=== PATIENT | male | born 1995 | race Caucasian/White ===

== ENCOUNTER 2021-03-22 17:04 | Emergency (ER) | payer OTHER, SELFPAY ==
--- NOTE | ~2021-03-22 | XR_ITS ---
EXAMINATION: XR chest 2V 03/22/2021 17:32 INDICATION: Cough and wheezing PROCEDURE: 2 view chest COMPARISON: No prior studies for comparison. FINDINGS: The lungs are clear. The cardiomediastinal silhouette is within normal limits. There are no pleural effusions. There is no pneumothorax suspected. IMPRESSION: 1: NO ACUTE CARDIOPULMONARY DISEASE. Reviewed, dictated and finalized at location [facility]
[2021-03-22 17:16] VITALS: BP 125/74; PULSE 95; RESP 14; TEMP 36.8; O2SAT 100
--- NOTE | 2021-03-22 17:19 | ED.URI ---
HPI - URI/Sore Throat General Chief Complaint: Upper Respiratory Infection Stated Complaint: Cough Time Seen by Provider: 03/22/21 17:19 Source: patient and RN notes reviewed Mode of arrival: ambulatory Limitations: no limitations History of Present Illness HPI Narrative: 25-year-old male presents to the [facility] with complaints of, runny nose and congestion for 41-year-old week. MD elicited complaint: cough, rhinorrhea and nasal congestion Related Data Allergies Allergy/AdvReac Type Severity Reaction Status Date / Time adalimumab Allergy Unknown Rash Verified 03/22/21 17:26 Review of Systems Review of Systems: All systems reviewed & are unremarkable except as noted in HPI and below Constitutional: Constitutional: Reports no additional constitutional complaints, Denies chills and Denies fever(s) Eyes: Eyes: Reports no additional eye complaints ENT: Reports as per HPI and Reports nasal congestion Cardiovascular: Cardiovascular: Reports no additional cardiovascular complaints Respiratory: Respiratory: Reports as per HPI, Reports cough and Reports wheezing Gastrointestinal: Gastrointestinal: Reports no additional gastrointestinal complaints Musculoskeletal: Musculoskeletal: Reports no additional musculoskeletal complaints Integumentary/Breasts: Skin/Breast: Reports system reviewed and no additional complaints, except as docu Neurologic: Reports system reviewed and no additional complaints, except as documented Psychiatric: Psychiatric: Reports no additional psychiatric complaints Allergic/Immunologic: Allergic/Immunologic: Reports no additional allergic/immunologic complaints PMFSH Comments At the time of my signature, I reviewed and agree with the nursing past medical, surgical, social, and family history. There is no relevant family history pertinent to the patient complaint. Exam Const: General: no acute distress, alert and ill appearing (mild) acutely Nutritional Appearance: well nourished Orientation/consciousness: patient oriented x3 Limitations: no limitations HENMT: Head: normal to inspection Ears: external ears normal, TM's normal bilaterally and EAC's normal Eyes: Pupils: Equal, round and reactive pupils present Neck: Neck: normal visual inspection, no lymphadenopathy and no meningeal signs Chest: Chest palpation & inspection: normal inspection of the chest Resp: Effort & Inspection: normal respiratory effort Auscultation: wheezes scattered wheezes and throughout Cardio: Rate: regular rate Rhythm: regular rhythm GI: GI Palp: Yes Soft to palpation and No Tenderness to palpation present (GI) Back/Spine/Pelvis: Back: no CVA tenderness Skin: General skin exam: normal color Rashes: no rashes Wounds: no wounds Neuro: General: patient oriented x3, moves all extremities, no meningeal signs and no focal motor deficits Speech: normal speech Gait exam (Neuro): Normal gait present Extrem: General: normal to inspection and no pedal edema Psych: Appearance: grossly normal and well kempt Mental Status: mental status grossly normal Affect: normal affect Attitude: cooperative Thought content: Yes Normal thought content present Course Course Emergency Course: Discharge instructions reviewed with patient, as well as provided in writing per nursing staff. The instructions also include specific and strict return/GO TO THE ER as well as f/u information. All questions have been answered, and the patient deny any further questions with discharge and discharge plan. Vital Signs Vital signs: Vital Signs Temperature 98.3 F 03/22/21 17:16 Pulse Rate 95 03/22/21 17:16 Respiratory Rate 14 03/22/21 17:16 Blood Pressure 125/74 03/22/21 17:16 Pulse Oximetry 100 03/22/21 17:16 Temperature 98.3 F 03/22/21 17:16 Pulse Rate 95 03/22/21 17:16 Respiratory Rate 14 03/22/21 17:16 Blood Pressure 125/74 03/22/21 17:16 Pulse Oximetry 100 03/22/21 17:16 Reviewed MDM - URI/Sor
[2021-03-22] MEDS: predniSONE 20 MG TABLET 40 MG PO (17:32)
[2021-03-22] MEDS: IPRATROPIUM BR 0.02% INH SOLN 0.5 MG/2.5 ML VIAL INHALATION (17:33)
[2021-03-22] MEDS: ALBUTEROL SULFATE NEB 2.5 MG/3 ML INH INHALATION (17:34)
== END 2021-03-22 18:02 | disposition home or self-care (01) ==
PROVIDERS: Emergency Provider Nurse Practitioner
DX: J40 Bronchitis, not specified as acute or chronic (principal)
CPT/HCPCS: 71046; 94640; 99203; G0463; J7512

== ENCOUNTER 2023-03-27 14:58 | Emergency (ER) | payer OTHER, SELFPAY ==
[2023-03-27 15:07] VITALS: BP 122/70; PULSE 88; RESP 18; TEMP 36.8; O2SAT 98
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
== END 2023-03-27 15:24 | disposition home or self-care (01) ==
PROVIDERS: Emergency Provider Nurse Practitioner Family
DX: S02.5XXA Fracture of tooth (traumatic), initial encounter for closed fracture (principal); W22.8XXA Striking against or struck by other objects, initial encounter
CPT/HCPCS: 99213; G0463